=== PATIENT | male | born 1975 | race African-American/Black ===

== ENCOUNTER 2021-11-07 23:14 | Emergency (ER) | payer MEDICAID, SELFPAY ==
[2021-11-07 23:19] VITALS: BP 152/90; PULSE 75; RESP 18; TEMP 36.1; O2SAT 100
--- NOTE | 2021-11-07 23:46 | ED.GENADUL_ITS ---
Discharge Plan Disposition Patient Disposition: HOME Condition: Improving Discharge Details Clinical Impression: Odontalgia Primary Care Provider: None,None ED Provider: Patrice Lang Home Meds and New Rx's Prescriptions: New penicillin V potassium 500 mg tablet 500 mg PO TID 10 Days Qty: 30 0RF Discharge Instructions Instructions: Toothache (ED) Additional Instructions: Our care management team will arrange a follow-up for you to establish local primary care. Continue your routine medications including those for 2 help reduce your stomach acid. Avoid any significant ongoing use of aspirin or Advil. May use Tylenol 500 to 975 mg 3 times daily as needed for pain. Take penicillin as prescribed. Please use the resources provided to make a follow-up in dentistry. Return to ER for any acute concerns. Medical Decision Making 45-year-old male presents with right lower jaw pain and swelling that began this morning. He has numerous broken teeth and dental caries and appears to have a developing abscess on the right buccal aspect of his mandible. There is no definable abscess. He was consented and agreed to the dental block which I performed with good results. I will place him on penicillin and will follow up with dentistry. The patient had transient tingling of his left shoulder and left rodriguez today. I did perform multipoint neurologic exam which is unremarkable and repeated his blood pressure in the 140s over 80s. We will obtain outpatient follow-up for him to ensure good ongoing care. Do not feel any further work-up is required time. I did admonished him to limit his aspirin use given his history of peptic ulcer disease. HPI General Mode of arrival: ambulatory . Date/Time Provider Initiated Documentation: 11/07/21 23:20 . Limitations to Documentation: no limitations . Information obtained by: patient . History of Present Illness 45 year old M presents to the emergency department with the chief complaint of Right lower jaw pain, described as moderate and similar to prior episodes, Quality is described as dull, and is localized to the mouth and right. Patient reports no radiation. Patient started experiencing this hour(s) improves with No relieving factors improve symptom(s), No exacerbating factors reported . Patient notes denies fever/chills, headaches, loss of appetite, seizure, syncope and weakness. Patient did receive the following treatments prior to arrival, other (650 mg of aspirin) Related Data Home Medications Medication Instructions Recorded Confirmed penicillin V potassium 500 mg 500 mg PO TID 10 Days #30 tab 11/07/21 tablet Previous Rx's Medication Instructions Recorded penicillin V potassium 500 mg 500 mg PO TID 10 Days #30 tab 11/07/21 tablet Allergies Allergy/AdvReac Type Severity Reaction Status Date / Time No Known Allergies Allergy Unverified 11/07/21 23:26 General Stated Complaint: [facility] ROBBIE: 3 Review of Systems Narrative: History of poor dentition. No fever, chills, weakness. Had transient tingling of his left shoulder left rodriguez resolved after taking aspirin. No dark or bloody stools. Need follow-up in local area. 8 systems were reviewed and otherwise negative PFSH All Active Problems (Updated 11/07/21 @ 23:50 by Patrice Lang MD) Odontalgia (Acute) Social History Smoking/Tobacco Use Status: Current every day Tobacco Type: cigarettes Smoking risk assessment performed?: Yes Alcohol Intake: current Alcohol Intake frequency: 0-2 drinks per day Alcohol type: beer Drug use: Never Substance use type: does not use Do you feel safe at home: Yes Do you feel safe in your relationship?: Yes Exam Narrative Exam Narrative: GEN: awake, alert, oriented 3. Pleasant, well groomed, interactive. HEAD: Normocephalic, atraumatic ENT: Mucous membranes moist, there are numerous dental caries, partially broken residual stubs of teeth. The right mandible has tenderness without fluctuance on either the buccal or lingual aspect. No masses. EYES: PERRL, EOMI NECK: Full ROM, no AMOL, no menigismus CHEST/RESP: Nontender, clear to auscultation bilateral, no wheeze/rhonchi/rales CARDIOVASCULAR: RRR, no murmur, rub mervat. 2+ Rad pulse bilateral ABDOMEN: Soft, nontender, no mass. +Bowel sounds EXT: Full ROM, no edema, no rash Neuro: Grossly normal neurologic exam, conversant, interactive. Psych: Speech fluent, thoughts congruent, affect normal Course Vital Signs Vital signs: Vital Signs Temperature 36.1 C L 11/07/21 23:19 Pulse 75 11/07/21 23:19 Respiratory Rate 18 11/07/21 23:19 Blood Pressure 152/90 H 11/07/21 23:19 Pulse Oximetry 100 11/07/21 23:19 Temperature 36.1 C L 11/07/21 23:19 Temperature Source Skin 11/07/21 23:19 Pulse 75 11/07/21 23:19 Respiratory Rate 18 11/07/21 23:19 Respiratory Effort 11/07/21 23:29 Respiratory Depth Normal 11/07/21 23:29 Respiratory Pattern Normal 11/07/21 23:29 Blood Pressure 152/90 H 11/07/21 23:19 Blood Pressure Position Sitting 11/07/21 23:19 Pulse Oximetry 100 11/07/21 23:19 Oxygen Delivery Method Room Air 11/07/21 23:19 Oxygen Flow Rate 0 11/07/21 23:19 Pain Level 3 11/07/21 23:19
[2021-11-07] MEDS: Penicillin V POTASSIUM 500 MG TAB, 4 TABS/BTL PO (23:55)
[2021-11-07] MEDS: Acetaminophen 500 MG TAB 1000 MG PO (23:55)
[2021-11-07 23:56] VITALS: BP 137/86; PULSE 72; RESP 18; O2SAT 100
--- NOTE | 2021-11-08 07:18 | NUR.NOTE ---
Referral given to [facility] for establish care needs PCP. Felisha whitlock Nursing Note:
--- NOTE | 2021-11-09 08:56 | PDOC.ERCMACT ---
- If Service Date Differs Date of service: 11/09/21 Time of Service: 08:56 Care Management Activity Note Avni is seen in the ED for a toothache. At the request of ED provider, JUDAH coordinates a referral to OLIVER Sanchez, of [facility], on-call provider, to assist Avni in establishing care with a PCP. He has Medicaid for insurance.
== END 2021-11-08 05:51 | disposition home or self-care (01) ==
PROVIDERS: Emergency Provider Emergency Medicine
DX: R68.84 Jaw pain (principal); K08.89 Other specified disorders of teeth and supporting structures
CPT/HCPCS: 99283